=== PATIENT | female | born 1975 | race Caucasian/White ===

== ENCOUNTER 2017-01-23 12:54 | Outpatient (CLI) | payer OTHER | END 2017-01-23 18:28 | disposition home or self-care (01) | LOC: SMA 12:54 | PROVIDERS: ATTEND Family Medicine | DX: Z12.31 Encounter for screening mammogram for malignant neoplasm of breast (principal) | CPT/HCPCS: 77067; G0202 ==

== ENCOUNTER 2017-02-11 14:20 | Outpatient (CLI) | payer OTHER | END 2017-02-11 20:34 | disposition home or self-care (01) | LOC: SMA 14:20 | PROVIDERS: ATTEND Family Medicine | DX: R92.8 Other abnormal and inconclusive findings on diagnostic imaging of breast (principal) | CPT/HCPCS: G0206 ×2 ==

== ENCOUNTER 2018-02-25 15:38 | Outpatient (CLI) | payer OTHER | END 2018-02-25 20:47 | disposition home or self-care (01) | LOC: SMA 15:38 | PROVIDERS: ATTEND Family Medicine | DX: Z12.31 Encounter for screening mammogram for malignant neoplasm of breast (principal) | CPT/HCPCS: 77067 ==

== ENCOUNTER 2019-03-25 10:00 | Outpatient (CLI) | payer OTHER | END 2019-03-25 20:05 | disposition home or self-care (01) | LOC: SMA 10:00 | PROVIDERS: ATTEND Family Medicine | DX: Z12.31 Encounter for screening mammogram for malignant neoplasm of breast (principal) | CPT/HCPCS: 77067 ==

== ENCOUNTER 2020-03-23 08:40 | Outpatient (CLI) | payer OTHER | END 2020-03-23 18:54 | disposition home or self-care (01) | LOC: SMA 08:40 | PROVIDERS: ATTEND Family Medicine | DX: Z12.31 Encounter for screening mammogram for malignant neoplasm of breast (principal) | CPT/HCPCS: 77067 ==

== ENCOUNTER 2021-03-31 11:06 | Outpatient (CLI) | payer OTHER | END 2021-03-31 20:37 | disposition home or self-care (01) | LOC: SMA 11:06 | PROVIDERS: ATTEND Family Medicine | DX: Z12.31 Encounter for screening mammogram for malignant neoplasm of breast (principal) | CPT/HCPCS: 77067 ==